=== PATIENT | male | born 1980 | race Caucasian/White ===

== ENCOUNTER 2018-01-07 22:20 | Emergency (ER) | payer MEDICAID ==
[~2018-01-07] VITALS: Ht 177.8 cm; Wt 105.4 kg
[2018-01-07] MEDS ORDERED: PROPOFOL 10 MG/ML, 20ML ONE ×2 (22:51→23:01)
[2018-01-07] MEDS ORDERED: PROPOFOL 10 MG/ML, 20ML IVPush ONE (23:00)
[2018-01-07] MEDS ORDERED: SODIUM CHLORIDE FLUSH 10ML SYR IVF ONE (23:00)
[2018-01-07] MEDS ORDERED: SODIUM CHLORIDE 0.9% 1,000ML IVBOLUS ONE (23:00)
[2018-01-08 00:04] VITALS: BP 118/70
== END 2018-01-08 00:11 | disposition home or self-care (01) ==
LOC: ED 23:59
DX: K42.0 Umbilical hernia with obstruction, without gangrene (principal)
CPT/HCPCS: 99285

== ENCOUNTER 2018-09-29 14:28 | Emergency (ER) | payer MEDICAID ==
[~2018-09-29] VITALS: Ht 177.8 cm; Wt 110.0 kg
[2018-09-29] MEDS ORDERED: LORazepam 2 MG/ML, 1ML IVPush PRN (15:00)
[2018-09-29] MEDS ORDERED: SODIUM CHLORIDE FLUSH 10ML SYR IVF ONE (15:00)
[2018-09-29 15:33] LABS: BASOPHILS # (AUTO) 0.07 x10^3/uL (0-0.1); BASOPHILS % (AUTO) 1 % (0-1); EOSINOPHILS # (AUTO) 0.14 x10^3/uL (0-0.4); EOSINOPHILS % (AUTO) 2 % (1-7); LYMPHOCYTES # (AUTO) 2.17 x10^3/uL (1-3.4); LYMPHOCYTES % (AUTO) 24 % (22-44); MD NO; MEAN CORPUSCULAR HEMOGLOBIN 33.7 pg (27.5-34.5); MEAN CORPUSCULAR HGB CONC 34.2 g/dL (33.2-36.2); MEAN CORPUSCULAR VOLUME 98.5 fL (81-97); MEAN PLATELET VOLUME 8.1 fL (7.4-10.4); MONOCYTES # (AUTO) 0.46 x10^3/uL (0.2-0.8); MONOCYTES % (AUTO) 5 % (2-9); NEUTROPHILS # (AUTO) 6.24 x10^3/uL (1.8-6.8); NEUTROPHILS % (AUTO) 69 % (42-75); PLATELET COUNT 238 x10^3/uL (130-400); RED BLOOD COUNT 4.82 x10^6/uL (4.38-5.82); RED CELL DISTRIBUTION WIDTH 13.4 % (9.4-14.8)
[2018-09-29 15:39] LABS: ALBUMIN 3.7 g/dL (3.4-5.0); ANION GAP 7 mmol/L (5-15); CALCIUM 9.1 mg/dL (8.5-10.1); CHLORIDE 100 mmol/L (98-107)
[2018-09-29 15:46] LABS: ALANINE AMINOTRANSFERASE 110 U/L (12-78); ALKALINE PHOSPHATASE 59 U/L (45-117); BILIRUBIN,TOTAL 0.5 mg/dL (0.2-1.0); CREATININE 1.15 mg/dL (0.7-1.3); FREE T4 (FREE THYROXINE) 1.09 ng/dL (0.76-1.46); TROPONIN I < 0.015 ng/mL (0.000-0.045)
--- NOTE | 2018-09-29 16:00 | NUR ---
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
--- NOTE | 2018-09-29 16:07 | NUR ---
PT AMBULATORY TO ROOM FROM LOBBY, UPRIGHT STEADY GAIT.
[2018-09-29] MEDS ORDERED: CHLORDIAZEPOXIDE 10 MG CAPSULE ONE (16:36)
[2018-09-29] MEDS ORDERED: CHLORDIAZEPOXIDE 10 MG CAPSULE PO PRN (17:00)
[2018-09-29 17:01] VITALS: BP 146/97
--- NOTE | 2018-09-29 17:03 | NUR ---
BREAK NOTE: PT. WAS MEDICATED ORDERED. PT. HAS THE CP MONITOR IN PLACE. VITALS MONITORED.
--- NOTE | 2018-09-29 18:24 | NUR ---
Patient/Caregiver given discharge instructions and they have confirmed that they understand the instructions. Patient ambulatory with steady gait.
== END 2018-09-29 18:25 | disposition home or self-care (01) ==
LOC: ED 18:24
DX: R00.2 Palpitations (principal); F10.239 Alcohol dependence with withdrawal, unspecified; F17.200 Nicotine dependence, unspecified, uncomplicated
CPT/HCPCS: 36415; 71046; 71250; 80053; 80307; 83735; 84439; 84443; 84484; 85025; 93005; 99284